=== PATIENT | female | born 1990 | race Hispanic/Latino ===

== ENCOUNTER 2022-02-10 18:15 | Inpatient (IN) | payer OTHER ==
[2022-02-10] MEDS ORDERED: hydrALAZINE 20 MG/ML VIAL SLOW IVP PRN (19:05)
[2022-02-10 19:27] LABS: Fetal Membranes Rupture RUPTURE DETECTED (No Rupture)
[2022-02-10 19:58] VITALS: BMI 47.5
[2022-02-10] MEDS ORDERED: Bicitra 30 ML UDCUP PO PRN (20:00)
[2022-02-10] MEDS ORDERED: Ondansetron PF 4 MG/2 ML Vial IVP PRN ×2 (20:00→22:44)
[2022-02-10] MEDS ORDERED: Famotidine/PF 20 mg/2ml Vial SLOW IVP PRN (20:00)
[2022-02-10] MEDS ORDERED: CEFAZOLIN 2 GM in Sodium Chloride 0.9% 100 ML IVPB SCH (20:00)
[2022-02-10] MEDS ORDERED: Lactated Ringer's 1,000 ML IV SCH (20:00)
[2022-02-10] MEDS ORDERED: Promethazine HCl 25 MG/ML VIAL IM PRN ×2 (20:00→22:44)
[2022-02-10] MEDS ORDERED: Azithromycin 500 MG in Sodium Chloride 0.9% 250 ML 250 ML IVPB SCH (20:00)
[2022-02-10] MEDS ORDERED: CEFAZOLIN 2 GM VIAL ONE (20:03)
[2022-02-10] MEDS ORDERED: Azithromycin 500 MG VIAL ONE (20:04)
[2022-02-10] MEDS ORDERED: Fentanyl 100 MCG/2 ML VIAL ONE (20:08)
[2022-02-10] MEDS ORDERED: Dexamethasone 4 mg/ml Vial ONE (20:08)
[2022-02-10] MEDS ORDERED: Morphine PF 10 MG/10 ML VIAL ONE (20:08)
[2022-02-10] MEDS ORDERED: ePHEDrine Sulfate 50 MG/10 ML VIAL ONE (20:08)
[2022-02-10] MEDS ORDERED: Ondansetron PF 4 MG/2 ML Vial ONE (20:08)
[2022-02-10] MEDS ORDERED: Phenylephrine 40 MG/NS 250 ML 250 ML ONE (20:09)
[2022-02-10] MEDS ORDERED: Oxytocin 10 UNITS/ML VIAL ONE ×2 (20:09→22:34)
[2022-02-10 20:13] LABS: #Eosinphils 0.2 10x3/uL (0.0-0.5); #Monocytes 0.6 10x3/uL (0.0-1.1); #Neutrophils 7.8 10x3/uL (1.5-8.4); %Basophils 0.4 % (0.0-2.0); %Eosinophils 1.7 % (0.0-6.0); %Lymphocytes 23.8 % (18.0-47.0); %Monocytes 4.8 % (0.0-10.0); %Neutrophils 68.3 % (40.0-75.0); Hemoglobin 12.5 g/dL (12.0-15.5); Mean Corpuscular Hemoglobin 29.3 pg (27.0-33.0); Mean Corpuscular Volume 86.4 fl (81.6-98.3); Mean Platelet Volume 11.3 fl (7.4-10.4); Platelet Count 283 10x3/uL (150-450); RBC Distribution Width 14.3 % (11.5-14.5); Red Blood Cell (RBC) Count 4.26 10x6/uL (3.90-5.03); White Blood Cell (WBC) Count 11.4 10x3/uL (3.5-10.5)
[2022-02-10] MEDS ORDERED: Ketorolac Tromethamine 30 MG/ML VIAL ONE (20:26)
[2022-02-10 20:30] LABS: ALT (SGPT) 21 U/L (8-55); AST (SGOT) 22 U/L (5-34); Albumin 3.6 g/dL (3.5-5.0); Alkaline Phosphatase 119 U/L (40-110); Anion Gap 16 mmol/L (10-20); BUN (Urea Nitrogen) 8 mg/dL (7.0-18.7); Bilirubin, Total 0.3 mg/dL (0.2-1.2); Calc. Creatinine Clearance 305 mL/min (70-130); Carbon Dioxide 18 mmol/L (22-29); Chloride 107 mmol/L (98-107); Estimated GFR 127; Globulin 2.9 g/dL (2.4-3.5); Glucose 77 mg/dL (70-105); Protein, Total 6.5 g/dL (6.0-8.3); Sodium 137 mmol/L (136-145)
[2022-02-10 20:48] LABS: Syphilis Antibody Nonreactive (Nonreactive); Syphilis Antibody Index 0.04 S/CO (<1.00 Non-Reactive)
[2022-02-10 20:49] LABS: HBSAg Index 0.15 S/CO (0-0.99); Hep B Surf Ag Non-Reactive S/CO (NonReactive)
[2022-02-10] MEDS ORDERED: Promethazine HCl 25 MG/ML VIAL ONE (21:22)
[2022-02-10] MEDS ORDERED: Moisturizing Cream (Eucerin) 113 GM JAR TOP PRN (22:44)
[2022-02-10] MEDS ORDERED: Meperidine HCl/PF 25 MG/ML VIAL SLOW IVP PRN (22:44)
[2022-02-10] MEDS ORDERED: Ketorolac Tromethamine 30 MG/ML VIAL IVP PRN (22:44)
[2022-02-10] MEDS ORDERED: Promethazine HCl 25 MG SUPP PR PRN (22:44)
[2022-02-10] MEDS ORDERED: Naloxone HCl 0.4 mg/ml Vial IV PRN (22:44)
[2022-02-10] MEDS ORDERED: diphenhydrAMINE 50 MG/ML VIAL IVP PRN (22:44)
[2022-02-10] MEDS ORDERED: Ondansetron HCl/PF 4 MG/2 ML Vial IVP PRN (22:44)
[2022-02-10] MEDS ORDERED: Fentanyl 100 MCG/2 ML VIAL SLOW IVP PRN (22:44)
[2022-02-10] MEDS ORDERED: L&D-Morphine 4 MG/ML VIAL SLOW IVP PRN (22:44)
[2022-02-10] MEDS ORDERED: Naloxone HCl 0.4 mg/ml Vial IVP PRN ×2 (22:44)
[2022-02-10] MEDS ORDERED: Ketorolac Tromethamine 30 MG/ML VIAL IVP SCH (22:45)
[2022-02-10] MEDS ORDERED: Communication Order-Pharmacy FS SCH (22:45)
[2022-02-11] MEDS ORDERED: Simethicone Chewable 80 MG TAB PO PRN (01:46)
[2022-02-11] MEDS ORDERED: Boostrix 0.5 ML (Tdap) VIAL (>/=7 yrs of age) IM ONE (01:46)
[2022-02-11] MEDS ORDERED: Misoprostol 200 MCG TAB PR PRN (01:46)
[2022-02-11] MEDS ORDERED: hydrALAZINE 20 MG/ML VIAL SLOW IVP PRN (01:46)
[2022-02-11] MEDS ORDERED: Ondansetron PF 4 MG/2 ML Vial IVP PRN (01:46)
[2022-02-11] MEDS ORDERED: diphenhydrAMINE 25 MG CAP PO PRN (01:46)
[2022-02-11 01:58] LABS: Creatinine, Urine 92.06 mg/dL (47-110)
[2022-02-11] MEDS ORDERED: NS w/ Oxytocin 30 units 500 ML IV SCH (02:00)
[2022-02-11 05:14] LABS: SARS-CoV-2 NAA Rapid Test Not Detected (NotDetected)
[2022-02-11 05:33] LABS: Hemoglobin 11.7 g/dL (12.0-15.5); Mean Corpuscular HGB CONC 33.3 g/dL (32.0-36.0); Mean Corpuscular Volume 87.1 fl (81.6-98.3); Mean Platelet Volume 11.2 fl (7.4-10.4); Platelet Count 265 10x3/uL (150-450); RBC Distribution Width 14.1 % (11.5-14.5); Red Blood Cell (RBC) Count 4.03 10x6/uL (3.90-5.03); White Blood Cell (WBC) Count 16.2 10x3/uL (3.5-10.5)
[2022-02-11] MEDS: Docusate 100 MG CAP PO SCH ×2 (09:17→22:13)
[2022-02-11] MEDS: Prenatal Vitamin 1 TAB PO SCH (09:17)
[2022-02-11] MEDS: Ferrous Sulfate 325 MG TAB PO SCH ×2 (09:19→19:08)
[2022-02-11] MEDS ORDERED: HYDROcodone/Acetaminophen 5/325 mg Tablet PO PRN (10:45)
[2022-02-11] MEDS: HYDROcodone/Acetaminophen 5/325 mg Tablet PO PRN (12:11)
[2022-02-11] MEDS: Ibuprofen 800 MG TAB PO SCH (14:14)
[2022-02-11] MEDS: Lactated Ringer's 1,000 ML IV SCH (20:39)
[2022-02-12] MEDS: Ibuprofen 800 MG TAB PO SCH ×2 (05:20→15:04)
[2022-02-12] MEDS: HYDROcodone/Acetaminophen 5/325 mg Tablet PO PRN ×3 (05:25→15:05)
[2022-02-12] MEDS: Lactated Ringer's 1,000 ML IV SCH (05:55)
[2022-02-12] MEDS: Prenatal Vitamin 1 TAB PO SCH (09:55)
[2022-02-12] MEDS: Docusate 100 MG CAP PO SCH (09:55)
[2022-02-12 16:22] VITALS: BP 132/68; TEMP 98.3
== END 2022-02-12 15:30 | disposition home or self-care (01) | DRG 788 ==
LOC: CSHLD/OP 18:15 → CSHLD 20:04 → CSHPP 02-11 01:35
PROVIDERS: ADMIT Family Medicine; ATTEND Family Medicine
PROC: 10D00Z1 Extraction of Products of Conception, Low, Open Approach (ICD-10-PCS; principal; 2022-02-10)
PROC: 0DNU0ZZ Release Omentum, Open Approach (ICD-10-PCS; 2022-02-10)
PROC: 3E03329 Introduction of Other Anti-infective into Peripheral Vein, Percutaneous Approach (ICD-10-PCS; 2022-02-10)
PROC: 3E0R3BZ Introduction of Anesthetic Agent into Spinal Canal, Percutaneous Approach (ICD-10-PCS; 2022-02-10)
DX: O10.92 Unspecified pre-existing hypertension complicating childbirth (principal); O99.214 Obesity complicating childbirth; E66.9 Obesity, unspecified; Z3A.38 38 weeks gestation of pregnancy; D25.9 Leiomyoma of uterus, unspecified; O34.13 Maternal care for benign tumor of corpus uteri, third trimester; Z37.0 Single live birth; O99.62 Diseases of the digestive system complicating childbirth; K66.0 Peritoneal adhesions (postprocedural) (postinfection); O34.211 Maternal care for low transverse scar from previous cesarean delivery; N85.8 Other specified noninflammatory disorders of uterus; K59.00 Constipation, unspecified
CPT/HCPCS: 36415; 51702; 80053; 82570; 84112; 84156; 85025; 85027; 86780; 86850; 86900; 86901; 87340; 99285; J0456; J1100; J1885; J2274; J2405; J2550; J2590; J3010; U0002